=== PATIENT | female | born 1985 | race Hispanic/Latino ===

== ENCOUNTER 2018-08-16 00:17 | Emergency (ER) | payer MEDICAID, OTHER ==
[2018-08-16] MEDS ORDERED: DICYCLOMINE HCL 10 MG/ML 2ML AMP IM ONE (00:43)
[2018-08-16 00:44] LABS: APPEARANCE,URINE Clear (CLEAR); BILIRUBIN,URINE Negative (NEGATIVE); COLOR,URINE Yellow (YELLOW); GLUCOSE, URINE (UA) Negative (NEGATIVE); KETONES,URINE Negative (NEGATIVE); LEUKOCYTE ESTERASE ,URINE Small (NEGATIVE); NITRATE,URINE Negative (NEGATIVE); OCCULT BLOOD,URINE Nonhemolyzed Trace (NEGATIVE); PH,URINE 7.5 (5.0-8.0); PROTEIN,URINE Negative (NEGATIVE)
[2018-08-16 00:58] LABS: BASOPHILS % (AUTO) 0.3 % (0.0-5.0); EOSINOPHILS % (AUTO) 1.9 % (0.0-8.0); HEMATOCRIT 37.2 % (36-48); LYMPHOCYTES % (AUTO) 40.7 % (21.0-51.0); MEAN CORPUSCULAR HEMOGLOBIN 30.2 pg (27.0-33.0); MEAN CORPUSCULAR HGB CONC 33.4 g/dL (32.0-36.0); MEAN CORPUSCULAR VOLUME 90.4 fL (79-99); MONOCYTES % (AUTO) 8.4 % (3.0-13.0); NEUTROPHILS % (AUTO) 48.7 % (40.0-77.0); PLATELET COUNT (AUTO) 264 K/uL (130-400); RED BLOOD CELL COUNT(AUTO) 4.11 MIL/uL (4.00-5.50); WHITE BLOOD COUNT (AUTO) 7.6 K/uL (4.8-10.8)
[2018-08-16 01:07] LABS: CREATININE 0.6 mg/dL (0.5-1.5); POTASSIUM 3.6 mmol/L (3.5-5.1)
[2018-08-16 01:11] LABS: ALBUMIN 3.9 g/dL (3.5-5.0); BILIRUBIN,DIRECT 0.1 mg/dL (0.0-0.3); BILIRUBIN,TOTAL 0.2 mg/dL (0.2-1.0)
[2018-08-16 01:12] LABS: BACTERIA,URINE None Seen /HPF (None Seen); HCG,QUAL RESULT NEGATIVE (NEGATIVE); MUCUS,URINE Few LPF (None Seen); SQUAMOUS EPITHELIAL CELL,UR Few /HPF (0-2); WBC,URINE 0-1 /HPF (0-1)
[2018-08-16] MEDS ORDERED: METOCLOPRAMIDE 10 MG/2 ML VIAL ONE (01:19)
[2018-08-16] MEDS ORDERED: FAMOTIDINE 20MG TAB 20 MG TAB ONE (01:19)
[2018-08-16] MEDS ORDERED: DiphenhydrAMINE HCL 50 MG/ML VIAL ONE (01:19)
[2018-08-16] MEDS ORDERED: SODIUM CHLORIDE 0.9% 1000ML 1,000 ML IV ONE (01:20)
[2018-08-16] MEDS ORDERED: KETOROLAC TROMETHAMINE 30MG/ML ONE (01:20)
== END 2018-08-16 02:26 | disposition home or self-care (01) ==
LOC: EDH 00:17
DX: K80.80 Other cholelithiasis without obstruction (principal); R93.2 Abnormal findings on diagnostic imaging of liver and biliary tract; R94.5 Abnormal results of liver function studies; Z88.6 Allergy status to analgesic agent; Z98.51 Tubal ligation status
CPT/HCPCS: 36415; 76705; 80048; 80076; 81001; 81025; 83690; 85025; 96372; 96374; 96375; 99285; J0500; J1200; J1885; J2765; J7030

== ENCOUNTER 2023-04-13 11:08 | Inpatient (IN) | payer OTHER ==
[~2023-04-13] VITALS: Ht 162.6 cm; Wt 71.9 kg
[2023-04-13] VITALS (23 sets, daily range): BP systolic 116–159; BP diastolic 68–88; PULSE 49–89; RESP 12–19
[2023-04-13 11:48] LABS: BASOPHILS # (AUTO) 0.02 K/uL (0.00-0.20); BASOPHILS % (AUTO) 0.2 % (0.0-5.0); EOSINOPHILS # (AUTO) 0.09 K/uL (0.00-0.70); EOSINOPHILS % (AUTO) 0.9 % (0.0-8.0); HEMATOCRIT 39.9 % (36-48); IMMATURE GRANULOCYTE ABSOLUTE 0.03 K/uL (0-1); LYMPHOCYTES # (AUTO) 2.4 K/uL (1.0-4.8); LYMPHOCYTES % (AUTO) 23.7 % (21.0-51.0); MEAN CORPUSCULAR HEMOGLOBIN 30.6 pg (27.0-33.0); MEAN CORPUSCULAR HGB CONC 33.1 g/dL (32.0-36.0); MEAN CORPUSCULAR VOLUME 92.6 fL (79-99); MONOCYTES # (AUTO) 0.7 K/uL (0.1-1.0); NEUTROPHILS % (AUTO) 67.9 % (40.0-77.0); PLATELET COUNT (AUTO) 366 K/uL (130-400); RED BLOOD CELL COUNT(AUTO) 4.31 MIL/uL (4.00-5.50); RED CELL DISTRIBUTION WIDTH 11.9 % (11.0-15.5); WHITE BLOOD COUNT (AUTO) 10.3 K/uL (4.8-10.8)
[2023-04-13 12:04] LABS: HCG,QUALITATIVE URINE NEGATIVE (NEGATIVE)
[2023-04-13] MEDS: METOCLOPRAMIDE 10 MG/2 ML VIAL IVP ONE (12:04)
[2023-04-13] MEDS: 0.9%NACL 1000ML 1,095 ML IV ONE (12:04)
[2023-04-13] MEDS: FAMOTIDINE 20MG VIAL IV ONE (12:04)
[2023-04-13] MEDS: KETOROLAC 30MG VIAL (30MG/ML) IVP ONE (12:05)
[2023-04-13 12:16] LABS: APPEARANCE,URINE CLEAR (CLEAR); BILIRUBIN,URINE NEGATIVE (NEGATIVE); COLOR,URINE YELLOW (YELLOW); GLUCOSE, URINE (UA) NEGATIVE (NEGATIVE); KETONES,URINE 40 mg/dL (NEGATIVE); LEUKOCYTE ESTERASE ,URINE NEGATIVE Leu/uL (NEGATIVE); NITRATE,URINE NEGATIVE (NEGATIVE); OCCULT BLOOD,URINE MODERATE (NEGATIVE); PROTEIN,URINE 20 mg/dL (NEGATIVE); UROBILINOGEN,URINE 0.2 mg/dL (0.2-1.0)
[2023-04-13 12:22] LABS: ADD UA MICROSCOPIC YES
[2023-04-13 12:34] LABS: CREATININE 0.6 mg/dL (0.5-1.5); POTASSIUM 3.4 mmol/L (3.5-5.1)
[2023-04-13 12:36] LABS: MUCUS,URINE FEW LPF (None Seen); SQUAMOUS EPITHELIAL CELL,UR FEW /HPF (0-2)
[2023-04-13 12:38] LABS: ALBUMIN 3.5 g/dL (3.5-5.0); BILIRUBIN,TOTAL 0.4 mg/dL (0.2-1.0); TOTAL PROTEIN, SERUM 8.4 g/dL (6.0-8.3)
[2023-04-13] MEDS ORDERED: ONDANSETRON 4MG INJ IVP PRN (13:30)
[2023-04-13] MEDS ORDERED: TRAMADOL /APAP 37.5MG/325MG TAB PO PRN (13:30)
[2023-04-13] MEDS: CEFTRIAXONE 2GM VIAL IVPB ONE (13:34)
[2023-04-13] MEDS: 0.9%NACL 1000ML 1,000 ML IV SCH (13:52)
[2023-04-13] MEDS: METRONIDAZOLE 500MG/100ML BAG 100 ML IVPB SCH (13:52)
[2023-04-13] MEDS: KCL 20 MEQ ERTAB PO ONE (13:52)
[2023-04-13] MEDS ORDERED: ACETAMINOPHEN 500 MG TABLET PO PRN (14:00)
[2023-04-13] MEDS: THIAMINE HCL 100 MG/ML 2ML VIAL IVP ONE (14:42)
[2023-04-13] MEDS: FOLIC ACID 5 MG/ML VIAL IV ONE (14:43)
[2023-04-13 15:39] LABS: THYROID STIMULATING HORMONE 1.46 uIU/mL (0.36-3.74)
[2023-04-13 16:19] LABS: SARS-CoV-2, RNA, NAAT NEGATIVE SARS CoV-2 (NEGATIVE)
[2023-04-13 16:24] LABS: INFLUENZA TYPE A Negative For Type A (NEGATIVE); INFLUENZA TYPE B Negative For Type B (NEGATIVE)
[2023-04-13] MEDS ORDERED: IPRATROPIUM/ALBUTEROL SULFATE 3 ML SOLUTION IH PRN (16:30)
[2023-04-13] MEDS ORDERED: LIDOCAINE PF 100MG/5ML (2%) SYRINGE 5ML ONE (16:36)
[2023-04-13] MEDS ORDERED: FENTANYL CITRATE PF 50 MCG/1 ML 2ML VIAL ONE ×2 (16:37→17:48)
[2023-04-13] MEDS ORDERED: PROPOFOL 10 MG/ML 20ML VIAL IV ONE (16:37)
[2023-04-13] MEDS ORDERED: ROCURONIUM BROMIDE 10MG/1ML 5ML VL ONE (16:37)
[2023-04-13] MEDS ORDERED: MIDAZOLAM HCL 1 MG/ML 2ML VIAL ONE (16:37)
[2023-04-13] MEDS ORDERED: DEXAMETHASONE SOD PHOSPHATE 4 MG/ML 1ML VIAL ONE (16:47)
[2023-04-13] MEDS ORDERED: ONDANSETRON 4MG INJ ONE (16:47)
[2023-04-13] MEDS ORDERED: DEXAMETHASONE SOD PHOSPHATE 10MG/ML 1ML VIAL ONE (16:47)
[2023-04-13] MEDS: BUPIVACAINE/PF 0.25% 30ML VIAL IJ ONE (17:03)
[2023-04-13] MEDS ORDERED: GLYCOPYRROLATE 0.2 MG/ML 5 ML VIAL ONE (17:44)
[2023-04-13] MEDS ORDERED: NEOSTIGMINE METHYLSULFATE 1MG/ML IV ONE (17:44)
[2023-04-13 20:11] LABS: AMPHET/METH SCREEN,URINE NEGATIVE (NEGATIVE); BARBITURATE SCREEN, URINE NEGATIVE (NEGATIVE); BENZODIAZEPINES SCREEN,URINE POSITIVE (NEGATIVE); CANNABINOID SCREEN,URINE POSITIVE (NEGATIVE); COCAINE SCREEN,URINE POSITIVE (NEGATIVE); OPIATE SCREEN,URINE NEGATIVE (NEGATIVE); PHENCYCLIDINE SCREEN,URINE NEGATIVE (NEGATIVE)
[2023-04-13 21:26] LABS: INR <= 0.93 (0.85-1.15); PROTHROMBIN TIME 10.4 SEC (9.6-11.6)
[2023-04-13 21:28] LABS: PARTIAL THROMBOPLASTIN TIME 30.2 SEC (26.3-35.5)
[2023-04-13] MEDS: TRAMADOL HCL 50 MG TABLET PO PRN (22:08)
[2023-04-14] VITALS (7 sets, daily range): BP systolic 122–128; BP diastolic 65–78; PULSE 53–75; RESP 18–19; O2SAT 97–98
[2023-04-14 03:37] LABS: BASOPHILS # (AUTO) 0.01 K/uL (0.00-0.20); BASOPHILS % (AUTO) 0.1 % (0.0-5.0); IMMATURE GRANULOCYTE ABSOLUTE 0.03 K/uL (0-1); MEAN CORPUSCULAR HEMOGLOBIN 30.5 pg (27.0-33.0); MEAN CORPUSCULAR HGB CONC 33.4 g/dL (32.0-36.0); MEAN CORPUSCULAR VOLUME 91.2 fL (79-99); MONOCYTES # (AUTO) 0.4 K/uL (0.1-1.0); MONOCYTES % (AUTO) 3.8 % (3.0-13.0); NEUTROPHILS # (AUTO) 8.1 K/uL (1.8-7.7); NEUTROPHILS % (AUTO) 85.8 % (40.0-77.0); PLATELET COUNT (AUTO) 326 K/uL (130-400); RED BLOOD CELL COUNT(AUTO) 3.18 MIL/uL (4.00-5.50); WHITE BLOOD COUNT (AUTO) 9.5 K/uL (4.8-10.8)
[2023-04-14 03:56] LABS: ALBUMIN 2.6 g/dL (3.5-5.0); BILIRUBIN,TOTAL 0.3 mg/dL (0.2-1.0); CREATININE 0.4 mg/dL (0.5-1.5); MAGNESIUM 1.7 mg/dL (1.80-2.40); POTASSIUM 3.9 mmol/L (3.5-5.1); TOTAL PROTEIN, SERUM 6.6 g/dL (6.0-8.3)
[2023-04-14] MEDS: MAGNESIUM OXIDE 400 MG TABLET PO ONE (06:17)
[2023-04-14] MEDS: KETOROLAC 15MG/ML VIAL (15MG/ML) IV PRN (07:53)
[2023-04-14] MEDS: CEFTRIAXONE 2GM VIAL IVPB SCH (09:42)
[2023-04-14] MEDS: KETOROLAC 15MG/ML VIAL (15MG/ML) IM ONE (13:51)
== END 2023-04-14 18:50 | disposition home or self-care (01) | DRG 419 ==
LOC: EDH 11:08 → EDHIP 11:09 → UNDOADMIN 13:25 → EDHIP 13:25 → 4DH 19:05
PROVIDERS: ADMIT Internal Medicine; ATTEND Internal Medicine
PROC: 0FT44ZZ Resection of Gallbladder, Percutaneous Endoscopic Approach (ICD-10-PCS; principal; 2023-04-13 16:38)
DX: K80.00 Calculus of gallbladder with acute cholecystitis without obstruction (principal); Z20.822 Contact with and (suspected) exposure to COVID-19; E86.0 Dehydration; E87.6 Hypokalemia; K82.8 Other specified diseases of gallbladder; F12.10 Cannabis abuse, uncomplicated; F19.10 Other psychoactive substance abuse, uncomplicated; Z87.891 Personal history of nicotine dependence; Z88.5 Allergy status to narcotic agent
CPT/HCPCS: 36415; 76705; 80053; 80305; 81001; 81025; 83036; 83690; 83735; 84145; 84443; 85025; 85610; 85651; 85730; 86140; 87635; 87804; G0378; J0696; J1100; J1885; J2001; J2250; J2405; J2704; J2710; J2765; J3010; J3411; J3490; J7030; A4452; A4649; A4930; C1769; J0665